=== PATIENT | male | born 1995 | race Caucasian/White ===

== ENCOUNTER 2022-11-17 07:35 | Day surgery (SDC) | payer BC ==
[2022-11-16 13:02] VITALS: BMI 52.3
[2022-11-17] MEDS ORDERED: Oxymetazoline HCl 0.05% (30 ML BOT) ONE ×2 (08:22→08:49)
[2022-11-17] MEDS ORDERED: SUGAMMADEX SODIUM 200 MG/2 ML VIAL ONE (08:47)
[2022-11-17] MEDS ORDERED: Fentanyl 250 MCG/5 ML VIAL ONE (08:47)
[2022-11-17] MEDS ORDERED: Lidocaine 1% (PF) 30 ML VIAL ONE (08:49)
[2022-11-17] MEDS ORDERED: Bacitracin Zinc Ointment 30 gm TUBE ONE (08:49)
[2022-11-17] MEDS ORDERED: Labetalol HCl 100 MG/20 ML VIAL ONE (09:23)
[2022-11-17] MEDS ORDERED: Lidocaine 1% PF 5 ML VIAL ONE (09:23)
[2022-11-17] MEDS ORDERED: Rocuronium Bromide 10 MG/ML (10ML VIAL) ONE (09:23)
[2022-11-17] MEDS ORDERED: Succinylcholine Chloride 100 MG/5 ML SYRINGE FS ONE (09:23)
[2022-11-17] MEDS ORDERED: Ondansetron PF 4 MG/2 ML Vial ONE (09:23)
[2022-11-17] MEDS ORDERED: PROPOFOL 200 MG/20 ML VIAL ONE (09:23)
[2022-11-17] MEDS ORDERED: Dexamethasone 20 MG/5 ML VIAL ONE (09:23)
[2022-11-17] MEDS ORDERED: Fentanyl 100 MCG/2 ML VIAL ONE (10:35)
[2022-11-17] MEDS ORDERED: hydrALAZINE 20 MG/ML VIAL ONE (10:45)
[2022-11-17] MEDS ORDERED: Morphine 4 MG/ML VIAL ONE (11:32)
[2022-11-17] MEDS ORDERED: HYDROcodone/Acetaminophen 5/325 mg Tablet ONE (12:04)
[2022-11-17] MEDS ORDERED: Ketorolac Tromethamine 30 MG/ML VIAL ONE (13:23)
== END 2022-11-17 14:35 | disposition home or self-care (01) ==
LOC: SDC 07:35
PROVIDERS: ATTEND Otolaryngology Plastic Surgery within the Head & Neck
PROC: 099S8ZZ Drainage of Right Frontal Sinus, Via Natural or Artificial Opening Endoscopic (ICD-10-PCS; principal; 2022-11-17)
PROC: 095L0ZZ Destruction of Nasal Turbinate, Open Approach (ICD-10-PCS; principal; 2022-11-17)
PROC: 09TU8ZZ Resection of Right Ethmoid Sinus, Via Natural or Artificial Opening Endoscopic (ICD-10-PCS; principal; 2022-11-17)
PROC: 09TV8ZZ Resection of Left Ethmoid Sinus, Via Natural or Artificial Opening Endoscopic (ICD-10-PCS; principal; 2022-11-17)
PROC: 09BR8ZZ Excision of Left Maxillary Sinus, Via Natural or Artificial Opening Endoscopic (ICD-10-PCS; principal; 2022-11-17)
PROC: 099T8ZZ Drainage of Left Frontal Sinus, Via Natural or Artificial Opening Endoscopic (ICD-10-PCS; principal; 2022-11-17)
PROC: 09SM0ZZ Reposition Nasal Septum, Open Approach (ICD-10-PCS; principal; 2022-11-17)
PROC: 8E09XBZ Computer Assisted Procedure of Head and Neck Region (ICD-10-PCS; principal; 2022-11-17)
PROC: 09BQ8ZZ Excision of Right Maxillary Sinus, Via Natural or Artificial Opening Endoscopic (ICD-10-PCS; principal; 2022-11-17)
DX: J32.9 Chronic sinusitis, unspecified (principal); J30.89 Other allergic rhinitis; B48.8 Other specified mycoses; J33.8 Other polyp of sinus; J34.2 Deviated nasal septum; J34.3 Hypertrophy of nasal turbinates; U09.9 Post COVID-19 condition, unspecified
CPT/HCPCS: 88304; J0360; J1100; J1885; J2001; J2270; J2405; J2704; J3010